=== PATIENT | male | born 1990 | race Caucasian/White ===

== ENCOUNTER 2023-04-28 23:37 | Emergency (ER) | payer BC ==
[2023-04-29] MEDS ORDERED: Tetracaine HCl/PF 0.5% 4 ML Bottle EYEBOTH STA (01:54)
[2023-04-29] MEDS ORDERED: Diphtheria,Pertussis(Acell),Tetanus Vaccine 0.5 ML Syringe IM ONE (01:58)
== END 2023-04-29 04:41 | disposition home or self-care (01) ==
LOC: MW.ED 23:37
DX: T15.01XA Foreign body in cornea, right eye, initial encounter (principal); Z86.16 Personal history of COVID-19; Z23 Encounter for immunization
CPT/HCPCS: 65220; 90471; 90715; 99283; 99283-25; J3490